=== PATIENT | male | born 2000 | race Caucasian/White ===

== ENCOUNTER 2022-03-15 19:29 | Emergency (ER) | payer OTHER ==
[2022-03-15] MEDS ORDERED: Morphine 10 MG/ML SDV IVPUSH ONE (20:00)
== END 2022-03-15 20:45 | disposition home or self-care (01) ==
LOC: VM.ED 19:29
DX: S83.001A Unspecified subluxation of right patella, initial encounter (principal); X50.0XXA Overexertion from strenuous movement or load, initial encounter; Y93.61 Activity, american tackle football
CPT/HCPCS: 73560-RT; 96374; 99283; 99284-25; J2270